=== PATIENT | male | born 1980 | race Caucasian/White ===

== ENCOUNTER 2017-10-26 20:13 | Emergency (ER) | payer BC ==
[~2017-10-26] VITALS: Ht 165.1 cm; Wt 86.0 kg
[2017-10-27] MEDS ORDERED: BACITRACIN ZINC OINT UDPKT TOP ONE (00:15)
[2017-10-27] MEDS ORDERED: KETOROLAC 60MG/2ML VIAL IM ONE (00:15)
[2017-10-27] MEDS ORDERED: TETANUS, DIPHTHERIA, PERTUSSIS VAC/PF 0.5ML (>7YR OLD) IM ONE (00:15)
[2017-10-27 02:00] VITALS: BP 124/64
== END 2017-10-27 02:35 | disposition home or self-care (01) ==
LOC: ER 20:13 → EDSEX 20:13 → ER 10-27 02:35
DX: M25.512 Pain in left shoulder (principal); R07.81 Pleurodynia; R51 Headache; V89.2XXA Person injured in unspecified motor-vehicle accident, traffic, initial encounter; Y93.89 Activity, other specified; Y92.89 Other specified places as the place of occurrence of the external cause; Y99.8 Other external cause status
CPT/HCPCS: 71101; 73030; 90471; 90715; 96372; 99284; J1885